=== PATIENT | male | born 1970 | race Caucasian/White ===

== ENCOUNTER 2020-12-01 12:03 | Emergency (ER) | payer BC ==
[2020-12-01] MEDS ORDERED: Ketorolac 30 MG/ML SDV IM ONE (13:00)
[2020-12-01] MEDS ORDERED: Ketorolac 30 MG/ML SDV ONE (13:14)
--- NOTE | 2020-12-01 13:33 | EDM.PDOC ---
ED HPI GENERAL MEDICAL PROBLEM - General Chief Complaint: Headache Stated Complaint: jaw pain Time Seen by Provider: 12/01/20 13:00 Source of Information: Reports: Patient History Limitations: Reports: No Limitations - History of Present Illness INITIAL COMMENTS - FREE TEXT/NARRATIVE: 50-year-old male presented to the ED complaining of left jaw ear and mormonism pain. Pain has been going on for approximately 1 week it was gradual in onset. Provocative factors temperature change hot or cold makes the pain worse. No change in discomfort based upon position. Patient describes the pain as a 10/10 in a throbbing type pain. Radiates over the left eye and into his teeth. Positive for subjective fevers, raw on the same side of his throat, chest rash on the right pect, decreased appetite. Patient has tried Advil and Tylenol and Sudafed to no avail. Negative for: Chest pain, shortness of breath, cough, trauma, syncope/near syncope, constipation/diarrhea, nausea/vomiting, blurred vision, easy bruising, or vision changes - Related Data Allergies Allergy/AdvReac Type Severity Reaction Status Date / Time No Known Allergies Allergy Verified 12/01/20 13:08 Home Meds: Home Meds Levothyroxine 200 mcg PO ACBREAKFAST 12/01/20 [History] Propranolol [Inderal] 10 mg PO TID 12/01/20 [History] traMADol HCl [Tramadol HCl] 100 mg PO Q6HR PRN #24 tablet 12/01/20 [Rx] Past Medical History - Past Surgical History Musculoskeletal Surgical History: Reports: Other (See Below) Other Musculoskeletal Surgeries/Procedures:: surgery rt and left arm Social & Family History - Tobacco Use Tobacco Use Status *Q: Current Every Day Tobacco User Years of Tobacco use: 30 Packs/Tins Daily: 1 Second Hand Smoke Exposure: No - Caffeine Use Caffeine Use: Reports: Coffee, Soda - Recreational Drug Use Recreational Drug Use: No ED ROS GENERAL - Review of Systems Review Of Systems: Comprehensive ROS is negative, except as noted in HPI. - Physical Exam Exam: See Below Text/Narrative:: 50-year-old male in a sitting position bay 1. Patient is holding his head, moderate distress due to pain. Patient is alert and oriented 3/3, GCS 4 5 6, speaking in full sentences. No obvious trauma. Exam Limited By: No Limitations General Appearance: Alert, WD/WN, No Apparent Distress Eye Exam: Bilateral Eye: EOMI, PERRL Ears: Normal External Exam, Normal Canal, Hearing Grossly Normal, Normal TMs, Other Nose: Normal Inspection, Normal Mucosa, No Blood Throat/Mouth: Normal Inspection, Normal Lips, Normal Teeth, Normal Gums, Normal Oropharynx, Normal Voice, No Airway Compromise Head Exam: Atraumatic, Normocephalic, Scalp Tenderness (Left mormonism left forehead left TMJ left jaw, no edema no asymmetry to the face) Neck: Full Range of Motion, Tender Lateral (Left side). No: Lymphadenopathy (R), Lymphadenopathy (L) Respiratory/Chest: No Respiratory Distress, Lungs Clear, Normal Breath Sounds, No Accessory Muscle Use, Chest Non-Tender Cardiovascular: Normal Peripheral Pulses, Regular Rate, Rhythm, No Edema, No Gallop, No JVD, No Murmur, No Rub GI/Abdominal: Soft, Non-Tender, No Organomegaly, No Distention, No Abnormal Bruit, No Mass, Hernia (Umbilical small) (Male) Exam: Deferred Rectal (Males) Exam: Deferred Neuro Exam (Abbreviated): Alert, Oriented, CN II-XII Intact, Normal Cognition, Normal Gait, No Motor/Sensory Deficits Back Exam: No: CVA Tenderness (R), CVA Tenderness (L) Extremities: Normal Inspection, Normal Range of Motion, Non-Tender, No Pedal Edema, Normal Capillary Refill Psychiatric: Normal Affect, Normal Mood Skin Exam: Warm, Dry, Intact, Normal Color, Rash (Palm-sized right pack macular, nontender) Course - Vital Signs Last Recorded V/S: Last Vital Signs Temp 97.8 F 12/01/20 12:31 Pulse 74 12/01/20 12:31 Resp 20 12/01/20 12:31 BP 126/72 12/01/20 12:31 Pulse Ox 98 12/01/20 12:31 - Orders/Labs/Meds Orders: Active Orders 24 hr Category Date Time Status BASIC METABOLIC PANEL,BMP [CHEM] Stat Lab 12/01/20 13:15 Received CRP [C-REACTIVE PROTEIN] [CHEM] Stat Lab 12/01/20 13:15 Received Labs: Laboratory Tests 12/01/20 Range/Units 13:15 WBC 8.8 (4.0-11.0) K/uL RBC 4.70 (4.50-6.50) M/uL Hgb 15.5 (13.0-18.0) g/dL Hct 45.3 (40.0-54.0) % MCV 96 (76-96) fL MCH 33.0 H (27.0-32.0) pg MCHC 34.2 (31.0-35.0) g/dL RDW 12.8 (11.0-16.0) % Plt Count 179 (150-400) K/uL MPV 10.2 H (6.0-10.0) fL Neut % (Auto) 52.3 (45.0-70.0) % Lymph % (Auto) 37.4 (20.0-40.0) % Andrew % (Auto) 6.6 (3.0-10.0) % Eos % (Auto) 3.4 (1.0-5.0) % Baso % (Auto) 0.3 (0.0-0.5) % Neut # (Auto) 4.59 (2.00-7.50) K/uL Lymph # (Auto) 3.28 (1.50-4.00) K/uL Andrew # (Auto) 0.58 (0.20-0.80) K/uL Eos # (Auto) 0.30 (0.04-0.40) K/uL Baso # (Auto) 0.03 (0.02-0.10) K/uL Meds: Medications Discontinued Medications Generic Name Dose Route Start Last Admin Trade Name Freq PRN Reason Stop Dose Admin Ketorolac Tromethamine 30 mg 12/01/20 13:00 12/01/20 13:05 Ketorolac 30 Mg/Ml Sdv IM 12/01/20 13:01 30 mg ONETIME ONE Administration Ketorolac Tromethamine Confirm 12/01/20 13:14 12/01/20 13:18 Ketorolac 30 Mg/Ml Sdv Administered 12/01/20 13:15 Not Given Dose 30 mg .ROUTE .STK-MED ONE Departure - Departure Time of Disposition: 15:30 Disposition: Home, Self-Care 01 Condition: Good Clinical Impression: Shingles, Head and face pain - Discharge Information *PRESCRIPTION DRUG MONITORING PROGRAM REVIEWED*: No *COPY OF PRESCRIPTION DRUG MONITORING REPORT IN PATIENT NOELLE: No Referrals: PCP,None [Primary Care Provider] - Sepsis Event Note (ED) - Evaluation Sepsis Screening Result: No Definite Risk - Focused Exam Vital Signs: Vital Signs Temp Pulse Resp BP Pulse Ox 12/01/20 12:31 97.8 F 74 20 126/72 98 - My Orders Last 24 Hours: My Active Orders 12/01/20 13:15 BASIC METABOLIC PANEL,BMP [CHEM] Stat CRP [C-REACTIVE PROTEIN] [CHEM] Stat - Assessment/Plan Last 24 Hours: My Active Orders 12/01/20 13:15 BASIC METABOLIC PANEL,BMP [CHEM] Stat CRP [C-REACTIVE PROTEIN] [CHEM] Stat Assessment:: 50-year-old male presents with a headache. I considered a broad differential diagnosis for this patient including tension headache, migraine, analgesic rebound, occipital neuralgia, temporal arteritis. Other less common but serious causes considered included meningitis, encephalitis, subarachnoid bleed, stroke, tumor, etc. etc. The patient had no signs of serious headache etiologies at this point, no advanced imaging is indicated nor is a CT/lumbar puncture for a subarachnoid hemorrhage. Patient's questions were answered and they feel improved after the above interventions in the ED. Supportive outpatient management is therefore indicated headache precautions given for home. ESR was 14 rule out temporal arteritis. Pain was reproducible on palpation narrow down possibilities to nonintracranial Patient was given instructions if any rash or blisters appear on his face to return to the ED for antiviral therapy-shingles. Patient to follow-up with primary care provider, ED will leave message for clinic to establish appointment this week. Plan: ABC, history, exam, ketorolac for pain control, laboratory results CBC, CMP, CRP, ESR, patient education, all questions were answered to patient satisfaction patient understood treatment plan and agreed patient was discharged in stable condition with tramadol and methocarbamol ambulatory prescriptions.
[2020-12-01] MEDS ORDERED: Morphine 2 MG/ML SYRINGE IVPUSH ONE (14:08)
[2020-12-01] MEDS ORDERED: Sodium Chloride 0.9% 10 ML Syringe FLUSH PRN (14:09)
[2020-12-01] MEDS ORDERED: Morphine 2 MG/ML SYRINGE ONE (14:47)
[2020-12-01] MEDS ORDERED: Methocarbamol 500 MG Tab ONE (15:20)
[2020-12-01] MEDS ORDERED: traMADol 50 MG Tab ONE (15:20)
== END 2020-12-01 15:28 | disposition home or self-care (01) ==
LOC: LB.ED 12:03
DX: R51.9 Headache, unspecified (principal); B02.9 Zoster without complications; Z79.899 Other long term (current) drug therapy; Z72.0 Tobacco use
CPT/HCPCS: 36415; 80048; 85025; 85651; 86140; 96372; 96374; 99283-25; A9270-GY; J1885; J2270

== ENCOUNTER 2022-05-22 20:41 | Emergency (ER) | payer OTHER ==
[2022-05-22] MEDS: Ketorolac 60 MG/2 ML SDV IM ONE (20:56)
[2022-05-22 20:59] VITALS: BP 156/97; PULSE 66
[2022-05-22] MEDS: Orphenadrine 60 MG/2 ML Inj ONE (21:25)
[2022-05-22] MEDS: Orphenadrine 60 MG/2 ML Inj IM ONE (21:26)
[2022-05-22] MEDS ORDERED: Ondansetron 4 MG Tab.DIS ONE (22:30)
[2022-05-22] MEDS ORDERED: traMADol 50 MG Tab ONE (22:30)
== END 2022-05-22 22:35 | disposition home or self-care (01) ==
LOC: LB.ED 20:41
DX: N20.1 Calculus of ureter (principal); Z72.0 Tobacco use
CPT/HCPCS: 74176; 81001; 96372; 99284; A9270-GY; J1885; J2360; Q0162

== ENCOUNTER 2022-07-14 13:09 | Emergency (ER) | payer OTHER ==
[2022-07-14] MEDS ORDERED: Ondansetron 4 MG/2 ML SDV IVPUSH ONE (13:35)
[2022-07-14] MEDS ORDERED: HYDROmorphone 2 MG/ML Syringe ONE (13:43)
[2022-07-14] MEDS ORDERED: Ondansetron 4 MG/2 ML SDV ONE (13:44)
[2022-07-14] MEDS: HYDROmorphone 2 MG/ML Syringe IVPUSH ONE ×2 (13:51→14:50)
[2022-07-14 13:52] LABS: BASOPHILS ABSOLUTE AUTO 0.02 K/uL (0.02-0.10); BASOPHILS PERCENT AUTO 0.2 % (0.0-0.5); EOSINOPHILS ABSOLUTE AUTO 0.12 K/uL (0.04-0.40); HEMATOCRIT 45.6 % (40.0-54.0); HEMOGLOBIN 15.5 g/dL (13.0-18.0); LYMPHOCYTES ABSOLUTE AUTO 1.21 K/uL (1.50-4.00); LYMPHOCYTES PERCENT AUTO 10.5 % (20.0-40.0); MEAN CORPUSCULAR HEMOGLOBIN 32.4 pg (27.0-32.0); MEAN CORPUSCULAR VOLUME 95 fL (76-96); MEAN PLATELET VOLUME 10.3 fL (6.0-10.0); MONOCYTES ABSOLUTE AUTO 0.47 K/uL (0.20-0.80); MONOCYTES PERCENT AUTO 4.1 % (3.0-10.0); NEUTROPHILS PERCENT AUTO 84.2 % (45.0-70.0); PLATELET COUNT,PLT 186 K/uL (150-400); RED BLOOD CELL COUNT 4.78 M/uL (4.50-6.50); RED CELL DISTRIBUTION WIDTH 14.3 % (11.0-16.0); WHITE BLOOD CELL COUNT,WBC 11.5 K/uL (4.0-11.0)
[2022-07-14 14:15] LABS: ALBUMIN 3.7 g/dL (3.4-5.0); ANION GAP 13.2 mmol/L (5.0-15.0); BILIRUBIN TOTAL 0.4 mg/dL (0.0-1.0); BUN/CREATININE RATIO 16.5 (6-25); CALCIUM 9.3 mg/dL (8.5-10.1); CARBON DIOXIDE,CO2 30.3 mmol/L (21.0-32.0); CREATININE 0.97 mg/dL (0.70-1.30); EST CRCL DRUG DOSING (CG) 104.75 mL/min; POTASSIUM,K 4.5 mmol/L (3.5-5.1); PROTEIN TOTAL,TP 7.3 g/dL (6.4-8.2)
[2022-07-14 14:16] LABS: APPEARANCE,URINE CLOUDY (CLEAR); BILIRUBIN,URINE NEGATIVE (NEGATIVE); COLOR,URINE YELLOW; GLUCOSE,URINE NEGATIVE (NEGATIVE); KETONES,URINE NEGATIVE (NEGATIVE); LEUKOCYTE ESTERASE,URINE NEGATIVE (NEGATIVE); NITRITE,URINE NEGATIVE (NEGATIVE); OCCULT BLOOD,URINE NEGATIVE (NEGATIVE); PROTEIN,URINE NEGATIVE (NEGATIVE); UROBILINOGEN,URINE 0.2 E.U./dL (0.2-1.0)
[2022-07-14 14:21] LABS: CALCIUM OXALATE CRYSTALS,URINE RARE /HPF; RBC,URINE NOT SEEN /HPF; SQUAMOUS EPITHELIAL CELLS,UR OCCASIONAL /HPF; WBC,URINE NOT SEEN /HPF
[2022-07-14 14:22] LABS: AMORPHOUS SEDIMENT,URINE MANY /HPF; MUCUS,URINE FEW /HPF
== END 2022-07-14 15:05 | disposition home or self-care (01) ==
LOC: LB.ED 13:09
DX: R10.31 Right lower quadrant pain (principal); N50.811 Right testicular pain; J44.9 Chronic obstructive pulmonary disease, unspecified; E03.9 Hypothyroidism, unspecified; E66.9 Obesity, unspecified; Z68.42 Body mass index [BMI] 45.0-49.9, adult; Z72.0 Tobacco use
CPT/HCPCS: 36415; 74176; 80053; 81001; 85025; 96374; 96375; 96376; 99284-25; J1170; J2405

== ENCOUNTER 2022-12-05 08:39 | Emergency (ER) | payer OTHER ==
[2022-12-05] MEDS ORDERED: Ketorolac 60 MG/2 ML SDV IM ONE (08:52)
[2022-12-05] MEDS ORDERED: Ketorolac 30 MG/ML SDV IM ONE (08:54)
== END 2022-12-05 09:03 | disposition home or self-care (01) ==
LOC: LB.ED 08:39
DX: M10.041 Idiopathic gout, right hand (principal); E66.9 Obesity, unspecified; F17.210 Nicotine dependence, cigarettes, uncomplicated
CPT/HCPCS: 96372; 99283; J1885

== ENCOUNTER 2023-03-08 10:58 | Emergency (ER) | payer OTHER ==
[2023-03-08] MEDS ORDERED: Lidocaine 5% 700 MG Patch TOP ONE (11:44)
[2023-03-08] MEDS ORDERED: Sulfamethoxazole/Trimethoprim 800-160 MG Tab ONE (11:45)
[2023-03-08] MEDS ORDERED: Acetaminophen/oxyCODONE 325-5 MG Tab PO ONE (11:46)
[2023-03-08] MEDS ORDERED: Acetaminophen/oxyCODONE 325-5 MG Tab ONE (11:47)
== END 2023-03-08 11:56 | disposition home or self-care (01) ==
LOC: LB.ED 10:58
DX: L05.01 Pilonidal cyst with abscess (principal); E03.9 Hypothyroidism, unspecified; E66.9 Obesity, unspecified; F17.210 Nicotine dependence, cigarettes, uncomplicated; Z79.899 Other long term (current) drug therapy; Z68.42 Body mass index [BMI] 45.0-49.9, adult
CPT/HCPCS: 99283; A9270-GY

== ENCOUNTER 2023-04-01 13:07 | Emergency (ER) | payer OTHER | END 2023-04-01 13:28 | disposition home or self-care (01) | LOC: LB.ED 13:07 | DX: L05.91 Pilonidal cyst without abscess (principal); E03.9 Hypothyroidism, unspecified; F17.210 Nicotine dependence, cigarettes, uncomplicated; E66.9 Obesity, unspecified; Z68.42 Body mass index [BMI] 45.0-49.9, adult; Z79.899 Other long term (current) drug therapy | CPT/HCPCS: 99283 ==

== ENCOUNTER 2023-06-09 10:36 | Emergency (ER) | payer OTHER ==
[2023-06-09] MEDS: Ketorolac 60 MG/2 ML SDV IM ONE (11:35)
[2023-06-09 11:51] LABS: BASOPHILS ABSOLUTE AUTO 0.06 K/uL (0.02-0.10); BASOPHILS PERCENT AUTO 0.6 % (0.0-0.5); EOSINOPHILS ABSOLUTE AUTO 0.07 K/uL (0.04-0.40); EOSINOPHILS PERCENT AUTO 0.7 % (1.0-5.0); HEMATOCRIT 49.5 % (40.0-54.0); HEMOGLOBIN 16.9 g/dL (13.0-18.0); LYMPHOCYTES ABSOLUTE AUTO 3.63 K/uL (1.50-4.00); LYMPHOCYTES PERCENT AUTO 36.1 % (20.0-40.0); MEAN CORPUSCULAR HEMOGLOBIN 33.1 pg (27.0-32.0); MEAN CORPUSCULAR HGB CONC 34.1 g/dL (31.0-35.0); MEAN CORPUSCULAR VOLUME 97 fL (76-96); MEAN PLATELET VOLUME 10.7 fL (6.0-10.0); MONOCYTES ABSOLUTE AUTO 0.71 K/uL (0.20-0.80); MONOCYTES PERCENT AUTO 7.1 % (3.0-10.0); NEUTROPHILS ABSOLUTE AUTO 5.58 K/uL (2.00-7.50); NEUTROPHILS PERCENT AUTO 55.5 % (45.0-70.0); PLATELET COUNT,PLT 175 K/uL (150-400); RED BLOOD CELL COUNT 5.11 M/uL (4.50-6.50); RED CELL DISTRIBUTION WIDTH 14.4 % (11.0-16.0); WHITE BLOOD CELL COUNT,WBC 10.1 K/uL (4.0-11.0)
[2023-06-09 11:58] LABS: APPEARANCE,URINE CLEAR (CLEAR); BILIRUBIN,URINE NEGATIVE (NEGATIVE); COLOR,URINE YELLOW; GLUCOSE,URINE NEGATIVE (NEGATIVE); KETONES,URINE NEGATIVE (NEGATIVE); LEUKOCYTE ESTERASE,URINE NEGATIVE (NEGATIVE); NITRITE,URINE NEGATIVE (NEGATIVE); OCCULT BLOOD,URINE NEGATIVE (NEGATIVE); PROTEIN,URINE NEGATIVE (NEGATIVE); UROBILINOGEN,URINE 0.2 E.U./dL (0.2-1.0)
[2023-06-09 12:10] LABS: A/G RATIO 1.1 (0.8-2.0); ALBUMIN 4.2 g/dL (3.4-5.0); ANION GAP 10.7 mmol/L (5.0-15.0); BILIRUBIN TOTAL 0.8 mg/dL (0.0-1.0); BUN/CREATININE RATIO 10.6 (6-25); CALCIUM 9.3 mg/dL (8.5-10.1); CARBON DIOXIDE,CO2 31.4 mmol/L (21.0-32.0); CREATININE 0.94 mg/dL (0.70-1.30); EST CRCL DRUG DOSING (CG) 106.88 mL/min; POTASSIUM,K 4.1 mmol/L (3.5-5.1)
[2023-06-09 12:52] LABS: SEDIMENTATION RATE MANUAL 3 mm/hr (0-20)
== END 2023-06-09 12:53 | disposition home or self-care (01) ==
LOC: LB.ED 10:36
DX: N50.811 Right testicular pain (principal); M79.89 Other specified soft tissue disorders; E03.9 Hypothyroidism, unspecified; F17.210 Nicotine dependence, cigarettes, uncomplicated; Z79.899 Other long term (current) drug therapy
CPT/HCPCS: 36415; 80053; 81003; 85025; 85379; 85651; 96372; 99283; 99284; J1885